=== PATIENT | male | born 1950 | race Hispanic/Latino ===

== ENCOUNTER 2022-12-08 09:54 | Outpatient (CLI) | payer SELFPAY ==
[2022-12-08 10:45] LABS: Bilirubin Neg (Negative); Blood, Urine Negative (Negative); Clarity Clear (Clear); Glucose, Urine (Dipstick) >=1000 mg/dL (Negative); Ketone, Urine 5 mg/dL (Negative); Leukocyte Negative (Negative); Nitrite Negative (Negative); Protein, Urine (Dipstick) 30 mg/dl (Neg-Trace); Specific Gravity, Urine 1.025 (1.005-1.030); Urobilinogen Normal mg/dL (Less than 2)
[2022-12-08 10:55] LABS: Bacteria/HPF Rare-Few HPF (None Seen); RBC/HPF 0-3 HPF (0-3); Squamous Epithelial 0-3 HPF (0-3); WBC/HPF 0-3 HPF (0-3)
[2022-12-08 10:57] LABS: Hemoglobin 14.7 g/dL (13.5-17.5); Mean Corpuscular HGB CONC 32.3 g/dL (32.0-36.0); Mean Corpuscular Hemoglobin 27.8 pg (27.0-33.0); Mean Corpuscular Volume 86.2 fl (81.2-95.1); Mean Platelet Volume 10.6 fl (7.4-10.4); Platelet Count 320 10x3/uL (150-450); Red Blood Cell (RBC) Count 5.28 10x6/uL (4.32-5.72); White Blood Cell (WBC) Count 10.1 10x3/uL (3.5-10.5)
[2022-12-08 11:05] LABS: Anion Gap 15 mmol/L (10-20); BUN (Urea Nitrogen) 16 mg/dL (8.4-25.7); Calc. Creatinine Clearance 0 mL/min (70-130); Calcium 9.6 mg/dL (7.8-10.44); Carbon Dioxide 24 mmol/L (23-31); Chloride 103 mmol/L (98-107); Estimated GFR 96; Glucose 218 mg/dL (83-110); Potassium 4.2 mmol/L (3.5-5.1); Sodium 138 mmol/L (136-145)
[2022-12-08 11:07] LABS: INR-International Normal Ratio 0.9; PTT 27.7 sec (22.0-33.0); Prothrombin Time 10.3 sec (9.5-12.1)
== END 2022-12-08 09:55 | disposition home or self-care (01) ==
LOC: LABBT 09:54
PROVIDERS: ATTEND Urology
DX: Z01.818 Encounter for other preprocedural examination (principal); R97.20 Elevated prostate specific antigen [PSA]; R35.0 Frequency of micturition; E11.9 Type 2 diabetes mellitus without complications; N40.1 Benign prostatic hyperplasia with lower urinary tract symptoms; R39.14 Feeling of incomplete bladder emptying; Z87.440 Personal history of urinary (tract) infections; R81 Glycosuria; Z72.0 Tobacco use; Z80.42 Family history of malignant neoplasm of prostate
CPT/HCPCS: 71046; 80048; 81001; 85027; 85610; 85730; 87086; 93005; 93010

== ENCOUNTER 2022-12-21 05:57 | Day surgery (SDC) | payer SELFPAY ==
[2022-12-19 16:49] VITALS: BMI 28.7
[2022-12-21] MEDS ORDERED: Ertapenem 1 GM in Sodium Chloride 0.9% 100 ML IVPB SCH (06:30)
[2022-12-21] MEDS ORDERED: PROPOFOL 60 ML ONE (07:21)
[2022-12-21] MEDS ORDERED: Midazolam HCl 2 mg/2 ml Vial ONE (07:21)
[2022-12-21] MEDS ORDERED: FENTANYL 50 MCG/ML 1 ML VIAL ONE (07:21)
[2022-12-21] MEDS ORDERED: Phenazopyridine HCl 100 MG TAB ONE ×2 (08:08→08:13)
[2022-12-21] MEDS ORDERED: Tamsulosin HCl 0.4 MG CAP ONE (08:09)
== END 2022-12-21 10:31 | disposition home or self-care (01) ==
LOC: SDC 05:57
PROVIDERS: ATTEND Urology
PROC: 0TJB8ZZ Inspection of Bladder, Via Natural or Artificial Opening Endoscopic (ICD-10-PCS; principal; 2022-12-21)
PROC: 0VB03ZX Excision of Prostate, Percutaneous Approach, Diagnostic (ICD-10-PCS; principal; 2022-12-21)
DX: N40.1 Benign prostatic hyperplasia with lower urinary tract symptoms (principal); R35.0 Frequency of micturition; R39.14 Feeling of incomplete bladder emptying; N35.811 Other urethral stricture, male, meatal; I10 Essential (primary) hypertension; E78.5 Hyperlipidemia, unspecified; E11.9 Type 2 diabetes mellitus without complications; F17.200 Nicotine dependence, unspecified, uncomplicated; E66.9 Obesity, unspecified; Z68.28 Body mass index [BMI] 28.0-28.9, adult; Z79.82 Long term (current) use of aspirin; Z79.84 Long term (current) use of oral hypoglycemic drugs; Z79.899 Other long term (current) drug therapy; Z87.440 Personal history of urinary (tract) infections
CPT/HCPCS: G0416; J1335; J2250; J2704; J3010; J3490

== ENCOUNTER 2023-03-13 10:35 | Outpatient (CLI) | payer OTHER | END 2023-03-13 10:36 | disposition home or self-care (01) | LOC: ULT 10:35 | PROVIDERS: ATTEND Urology | DX: N50.819 Testicular pain, unspecified (principal); N45.1 Epididymitis; N43.3 Hydrocele, unspecified | CPT/HCPCS: 76870; 93976 ==

== ENCOUNTER 2023-03-29 14:26 | Outpatient (CLI) | payer SELFPAY ==
[2023-03-29 15:58] LABS: Hemoglobin 13.4 g/dL (13.5-17.5); Mean Corpuscular HGB CONC 31.8 g/dL (32.0-36.0); Mean Corpuscular Hemoglobin 26.9 pg (27.0-33.0); Mean Corpuscular Volume 84.6 fl (81.2-95.1); Mean Platelet Volume 9.8 fl (7.4-10.4); Platelet Count 438 10x3/uL (150-450); RBC Distribution Width 16.1 % (11.5-14.5); Red Blood Cell (RBC) Count 4.99 10x6/uL (4.32-5.72); White Blood Cell (WBC) Count 11.1 10x3/uL (3.5-10.5)
[2023-03-29 16:11] LABS: PTT 30.9 sec (22.0-33.0); Prothrombin Time 10.9 sec (9.5-12.1)
[2023-03-29 16:15] LABS: Anion Gap 15 mmol/L (10-20); BUN (Urea Nitrogen) 29 mg/dL (8.4-25.7); Calc. Creatinine Clearance 0 mL/min (70-130); Calcium 9.7 mg/dL (7.8-10.44); Carbon Dioxide 24 mmol/L (23-31); Chloride 104 mmol/L (98-107); Estimated GFR 78; Glucose 93 mg/dL (83-110); Potassium 5.1 mmol/L (3.5-5.1); Sodium 138 mmol/L (136-145)
== END 2023-03-29 14:27 | disposition home or self-care (01) ==
LOC: LABBT 14:26
PROVIDERS: ATTEND Urology
DX: Z01.818 Encounter for other preprocedural examination (principal); N40.1 Benign prostatic hyperplasia with lower urinary tract symptoms; N41.2 Abscess of prostate
CPT/HCPCS: 80048; 85027; 85610; 85730; 93005; 93010

== ENCOUNTER 2023-04-05 06:09 | Day surgery (SDC) | payer SELFPAY ==
[2023-03-29 15:04] VITALS: BMI 23.6
[2023-04-05] MEDS ORDERED: Meropenem 1 GM in Sodium Chloride 0.9% 100 ML IVPB SCH (07:00)
[2023-04-05] MEDS ORDERED: Fluconazole In NaCl,Iso-Osm 200 MG in Premix Bag 1 BAG IVPB SCH (07:15)
[2023-04-05] MEDS ORDERED: fentaNYL 50 mcg/mL 1 mL Vial ONE ×2 (08:09→09:14)
[2023-04-05] MEDS ORDERED: Lidocaine 1% PF 5 ML VIAL ONE (08:19)
[2023-04-05] MEDS ORDERED: PROPOFOL 200 MG/20 ML VIAL ONE (08:19)
[2023-04-05] MEDS ORDERED: Ondansetron HCl/PF 4 MG/2 ML Vial IVP PRN (08:43)
[2023-04-05] MEDS ORDERED: HYDROmorphone 2 MG/ML VIAL SLOW IVP PRN (08:43)
[2023-04-05] MEDS ORDERED: Promethazine HCl 25 MG/ML VIAL IM PRN (08:43)
[2023-04-05] MEDS ORDERED: Oxybutynin 5 MG TAB ONE (09:26)
[2023-04-05] MEDS ORDERED: Phenazopyridine HCl 100 MG TAB ONE (09:26)
== END 2023-04-05 11:27 | disposition home or self-care (01) ==
LOC: SDC 06:09
PROVIDERS: ATTEND Urology
PROC: 0T988ZZ Drainage of Bilateral Ureters, Via Natural or Artificial Opening Endoscopic (ICD-10-PCS; principal; 2023-04-05)
DX: N40.1 Benign prostatic hyperplasia with lower urinary tract symptoms (principal); N41.2 Abscess of prostate; N35.916 Unspecified urethral stricture, male, overlapping sites; R97.20 Elevated prostate specific antigen [PSA]; R39.14 Feeling of incomplete bladder emptying; N45.3 Epididymo-orchitis; R35.0 Frequency of micturition; R59.1 Generalized enlarged lymph nodes; I10 Essential (primary) hypertension; F41.9 Anxiety disorder, unspecified; E78.5 Hyperlipidemia, unspecified; E66.3 Overweight; E11.9 Type 2 diabetes mellitus without complications; R81 Glycosuria; Z80.42 Family history of malignant neoplasm of prostate; B37.49 Other urogenital candidiasis; Z87.440 Personal history of urinary (tract) infections; Z79.84 Long term (current) use of oral hypoglycemic drugs; Z79.82 Long term (current) use of aspirin; Z79.899 Other long term (current) drug therapy
CPT/HCPCS: 36416; C1769; J1450; J2185; J2704; J3010; J3490

== ENCOUNTER 2023-05-24 07:50 | Outpatient (CLI) | payer OTHER | END 2023-05-24 07:51 | disposition home or self-care (01) | LOC: CT 07:50 | PROVIDERS: ATTEND Urology | DX: N40.1 Benign prostatic hyperplasia with lower urinary tract symptoms (principal); N41.2 Abscess of prostate; D18.09 Hemangioma of other sites; R91.8 Other nonspecific abnormal finding of lung field; Z87.440 Personal history of urinary (tract) infections | CPT/HCPCS: 74178 ==

== ENCOUNTER 2023-05-24 10:12 | Outpatient (CLI) | payer OTHER ==
[2023-05-24 11:40] LABS: Hemoglobin 14.5 g/dL (13.5-17.5); Mean Corpuscular HGB CONC 32.2 g/dL (32.0-36.0); Mean Corpuscular Hemoglobin 27.5 pg (27.0-33.0); Mean Corpuscular Volume 85.2 fl (81.2-95.1); Mean Platelet Volume 10.5 fl (7.4-10.4); Platelet Count 372 10x3/uL (150-450); RBC Distribution Width 14.8 % (11.5-14.5); Red Blood Cell (RBC) Count 5.28 10x6/uL (4.32-5.72); White Blood Cell (WBC) Count 13.4 10x3/uL (3.5-10.5)
[2023-05-24 12:15] LABS: PTT 29.1 sec (22.0-33.0); Prothrombin Time 10.9 sec (9.5-12.1)
[2023-05-24 13:04] LABS: Anion Gap 17 mmol/L (10-20); BUN (Urea Nitrogen) 15 mg/dL (8.4-25.7); Calc. Creatinine Clearance 0 mL/min (70-130); Calcium 9.2 mg/dL (7.8-10.44); Carbon Dioxide 20 mmol/L (23-31); Chloride 105 mmol/L (98-107); Estimated GFR 96; Glucose 227 mg/dL (83-110); Potassium 4.4 mmol/L (3.5-5.1); Sodium 138 mmol/L (136-145)
== END 2023-05-24 10:13 | disposition home or self-care (01) ==
LOC: LABBT 10:12
PROVIDERS: ATTEND Urology
DX: Z01.818 Encounter for other preprocedural examination (principal); N20.1 Calculus of ureter
CPT/HCPCS: 80048; 85027; 85610; 85730; 93005; 93010

== ENCOUNTER 2023-06-07 06:38 | Observation (INO) | payer SELFPAY ==
[2023-06-07] MEDS ORDERED: Meropenem 1 GM in Sodium Chloride 0.9% 100 ML IVPB SCH (09:15)
[2023-06-07] MEDS ORDERED: Vancomycin 1 GM in Premix Bag 1 BAG IVPB SCH (09:15)
[2023-06-07] MEDS ORDERED: Vancomycin 1 GM/200 ML (FROZEN) BAG ONE (11:09)
[2023-06-07] MEDS ORDERED: SUGAMMADEX SODIUM 200 MG/2 ML VIAL ONE (11:10)
[2023-06-07] MEDS ORDERED: fentaNYL PF 100 MCG/2 ML SYRINGE ONE (11:10)
[2023-06-07] MEDS ORDERED: Glycopyrrolate 0.2 MG/ML 5 ML SYRINGE ONE (11:32)
[2023-06-07] MEDS ORDERED: PROPOFOL 200 MG/20 ML VIAL ONE (11:32)
[2023-06-07] MEDS ORDERED: Labetalol HCl 100 MG/20 ML VIAL ONE (11:32)
[2023-06-07] MEDS ORDERED: NEOSTIGMINE 3 MG/3 ML SYR 3 MG/3 ML SYRINGE ONE (11:32)
[2023-06-07] MEDS ORDERED: Lidocaine 1% PF 5 ML VIAL ONE (11:32)
[2023-06-07] MEDS ORDERED: Rocuronium Bromide 10 MG/ML (10ML VIAL) ONE (11:32)
[2023-06-07] MEDS ORDERED: Ondansetron PF 4 MG/2 ML Vial ONE (11:32)
[2023-06-07] MEDS ORDERED: Bacitracin 1 PK ONE (13:04)
[2023-06-07] MEDS ORDERED: fentaNYL 50 mcg/mL 1 mL Vial ONE ×2 (14:14→14:35)
[2023-06-07] MEDS ORDERED: diphenhydrAMINE 50 MG/ML VIAL IVP PRN (14:22)
[2023-06-07] MEDS ORDERED: Dextrose 5% in Water 1,000 ML IV PRN (14:22)
[2023-06-07] MEDS ORDERED: Ondansetron PF 4 MG/2 ML Vial IVP PRN (14:22)
[2023-06-07] MEDS ORDERED: HYDROcodone/Acetaminophen 5/325 mg Tablet PO PRN ×2 (14:22)
[2023-06-07] MEDS ORDERED: Dextrose 50% Abboject 50 ML SYRINGE SLOW IVP PRN (14:22)
[2023-06-07] MEDS ORDERED: Mag-Al 1200 mg/1200 mg/30 ML UDCUP PO PRN (14:22)
[2023-06-07] MEDS ORDERED: Insulin Regular 300 UNITS/3 ML VIAL SC PRN (14:22)
[2023-06-07] MEDS ORDERED: Glucagon 1 MG/ML KIT IM PRN (14:22)
[2023-06-07] MEDS ORDERED: hydrALAZINE 20 MG/ML VIAL SLOW IVP PRN (14:22)
[2023-06-07] MEDS: Sodium Chloride 0.9% 1,000 ML IV SCH (14:33)
[2023-06-07] MEDS ORDERED: Phenazopyridine HCl 100 MG TAB PO PRN (14:39)
[2023-06-07 15:11] LABS: #Eosinphils 0.3 thou/uL (0.0-0.7); #Monocytes 0.8 thou/uL (0.11-0.59); #Neutrophils 10.4 thou/uL (1.40-6.50); %Basophils 0.2 % (0.0-1.0); %Eosinophils 2.4 % (0.0-10.0); %Lymphocytes 15.7 % (21.0-51.0); %Monocytes 5.6 % (0.0-10.0); %Neutrophils 75.7 % (42.0-75.0); Hematocrit 42.7 % (42.0-52.0); Hemoglobin 13.5 g/dL (14.0-18.0); Mean Corpuscular HGB CONC 31.6 g/dL (32.0-36.0); Mean Corpuscular Hemoglobin 27.4 pg (27.0-31.0); Mean Corpuscular Volume 86.8 fl (78.0-98.0); Mean Platelet Volume 9.8 fL (7.4-10.4); Platelet Count 303 10x3/uL (130-400); RBC Distribution Width 14.5 % (11.5-14.5); Red Blood Cell (RBC) Count 4.92 mill/uL (4.70-6.10); White Blood Cell (WBC) Count 13.7 10x3/uL (4.8-10.8)
[2023-06-07 15:32] LABS: Anion Gap 12 mmol/L (10-20); BUN (Urea Nitrogen) 15 mg/dL (8.4-25.7); Calc. Creatinine Clearance 98 mL/min (70-130); Calcium 8.9 mg/dL (7.8-10.44); Carbon Dioxide 23 mmol/L (23-31); Chloride 103 mmol/L (98-107); Estimated GFR 102; Glucose 153 mg/dL (83-110); Potassium 3.7 mmol/L (3.5-5.1); Sodium 134 mmol/L (136-145)
[2023-06-07 19:56] VITALS: BMI 22.8
[2023-06-07] MEDS ORDERED: Simvastatin 10 MG TAB PO SCH (21:00)
[2023-06-07] MEDS ORDERED: Insulin Glargine 30 UNITS/0.3 ML VIAL SC SCH (21:00)
[2023-06-07] MEDS ORDERED: Tamsulosin HCl 0.4 MG CAP PO SCH (21:00)
[2023-06-07] MEDS: Famotidine/PF 20 mg/2ml Vial SLOW IVP SCH (22:34)
[2023-06-07] MEDS: Meropenem 1 GM in Sodium Chloride 0.9% 100 ML IVPB SCH (22:35)
[2023-06-07] MEDS: metFORMIN 500 MG TAB PO SCH (22:36)
[2023-06-07] MEDS: Docusate 100 MG CAP PO SCH (22:36)
[2023-06-08] MEDS: Sodium Chloride 0.9% 1,000 ML IV SCH (05:05)
[2023-06-08 06:06] LABS: #Eosinphils 0.2 thou/uL (0.0-0.7); #Monocytes 0.7 thou/uL (0.11-0.59); #Neutrophils 8.3 thou/uL (1.40-6.50); %Basophils 0.2 % (0.0-1.0); %Eosinophils 1.9 % (0.0-10.0); %Lymphocytes 17.4 % (21.0-51.0); %Monocytes 6.5 % (0.0-10.0); %Neutrophils 73.6 % (42.0-75.0); Hemoglobin 13.1 g/dL (14.0-18.0); Mean Corpuscular HGB CONC 32.8 g/dL (32.0-36.0); Mean Corpuscular Hemoglobin 27.4 pg (27.0-31.0); Platelet Count 306 10x3/uL (130-400); RBC Distribution Width 14.4 % (11.5-14.5); Red Blood Cell (RBC) Count 4.78 mill/uL (4.70-6.10); White Blood Cell (WBC) Count 11.4 10x3/uL (4.8-10.8)
[2023-06-08 06:18] LABS: Mean Corpuscular Volume 83.7 fl (78.0-98.0)
[2023-06-08 06:22] LABS: Anion Gap 11 mmol/L (10-20); BUN (Urea Nitrogen) 13 mg/dL (8.4-25.7); Calc. Creatinine Clearance 89 mL/min (70-130); Calcium 8.6 mg/dL (7.8-10.44); Carbon Dioxide 23 mmol/L (23-31); Chloride 105 mmol/L (98-107); Estimated GFR 98; Glucose 156 mg/dL (83-110); Potassium 4.2 mmol/L (3.5-5.1); Sodium 135 mmol/L (136-145)
[2023-06-08] MEDS: Meropenem 1 GM in Sodium Chloride 0.9% 100 ML IVPB SCH (06:26)
[2023-06-08 08:36] VITALS: TEMP 97.6
[2023-06-08] MEDS ORDERED: Tamsulosin HCl 0.4 MG CAP PO SCH (09:00)
[2023-06-08] MEDS ORDERED: glyBURIDE 5 MG TAB PO SCH (09:00)
[2023-06-08] MEDS ORDERED: Pioglitazone HCl 15 MG TAB PO SCH (09:00)
[2023-06-08] MEDS ORDERED: Dutasteride 0.5 MG CAP PO SCH (09:00)
[2023-06-08] MEDS ORDERED: Lisinopril 20 MG TAB PO SCH (09:00)
[2023-06-08] MEDS: Docusate 100 MG CAP PO SCH (09:45)
[2023-06-08] MEDS: metFORMIN 500 MG TAB PO SCH (09:47)
[2023-06-08] MEDS: Famotidine/PF 20 mg/2ml Vial SLOW IVP SCH (09:48)
[2023-06-08 11:56] VITALS: BP 133/75
== END 2023-06-08 14:06 | disposition home or self-care (01) ==
LOC: SDC 06:38 → SURG A 14:22 → SURG B 19:46
PROVIDERS: ADMIT Urology; ATTEND Urology
PROC: 0VT08ZZ Resection of Prostate, Via Natural or Artificial Opening Endoscopic (ICD-10-PCS; principal; 2023-06-08)
DX: N40.1 Benign prostatic hyperplasia with lower urinary tract symptoms (principal); R33.9 Retention of urine, unspecified; M54.30 Sciatica, unspecified side; I10 Essential (primary) hypertension; E11.9 Type 2 diabetes mellitus without complications; E78.5 Hyperlipidemia, unspecified; M19.90 Unspecified osteoarthritis, unspecified site; E66.3 Overweight; Z98.890 Other specified postprocedural states; Z79.899 Other long term (current) drug therapy; F17.200 Nicotine dependence, unspecified, uncomplicated; Z79.84 Long term (current) use of oral hypoglycemic drugs
CPT/HCPCS: 36415; 36416; 80048; 85025; 86850; 86900; 86901; 88305; J1815; J2185; J2405; J2704; J3010; J3370-JW; J3490; S0028

== ENCOUNTER 2023-08-11 12:47 | Outpatient (CLI) | payer SELFPAY ==
[2023-08-11 13:34] LABS: Hematocrit 43.5 % (38.8-50.0); Hemoglobin 14.4 g/dL (13.5-17.5); Mean Corpuscular HGB CONC 33.1 g/dL (32.0-36.0); Mean Corpuscular Hemoglobin 27.2 pg (27.0-33.0); Mean Corpuscular Volume 82.1 fl (81.2-95.1); Mean Platelet Volume 10.3 fl (7.4-10.4); Platelet Count 321 10x3/uL (150-450); White Blood Cell (WBC) Count 13.4 10x3/uL (3.5-10.5)
[2023-08-11 13:41] LABS: Bilirubin Neg (Negative); Blood, Urine 25 (Negative); Glucose, Urine (Dipstick) 250 mg/dL (Negative); Ketone, Urine Negative (Negative); Leukocyte 500 (Negative); Nitrite Negative (Negative); Protein, Urine (Dipstick) 100 mg/dl (Neg-Trace); Specific Gravity, Urine 1.025 (1.005-1.030); Urobilinogen Normal mg/dL (Less than 2)
[2023-08-11 13:49] LABS: Clarity Slightly Cloudy (Clear)
[2023-08-11 13:55] LABS: WBC/HPF Greater than 50 HPF (0-3)
[2023-08-11 13:56] LABS: PTT 27.7 sec (22.0-33.0); Prothrombin Time 10.4 sec (9.5-12.1); Yeast-Hyphae 1+ HPF (None Seen)
[2023-08-11 13:58] LABS: Anion Gap 13 mmol/L (10-20); BUN (Urea Nitrogen) 28 mg/dL (8.4-25.7); Calc. Creatinine Clearance 0 mL/min (70-130); Calcium 9.3 mg/dL (7.8-10.44); Carbon Dioxide 22 mmol/L (23-31); Chloride 107 mmol/L (98-107); Estimated GFR 97; Glucose 207 mg/dL (83-110); Potassium 4.3 mmol/L (3.5-5.1); Sodium 138 mmol/L (136-145); Squamous Epithelial 0-3 HPF (0-3)
[2023-08-11 14:06] LABS: RBC/HPF 0-3 HPF (0-3)
[2023-08-11 14:07] LABS: Bacteria/HPF 1+ HPF (None Seen); Yeast-Budding 1+ HPF (None Seen)
== END 2023-08-11 12:48 | disposition home or self-care (01) ==
LOC: LABBT 12:47
PROVIDERS: ATTEND Urology
DX: Z01.818 Encounter for other preprocedural examination (principal); E11.9 Type 2 diabetes mellitus without complications; N40.1 Benign prostatic hyperplasia with lower urinary tract symptoms; R97.20 Elevated prostate specific antigen [PSA]; N41.2 Abscess of prostate; R81 Glycosuria; R35.0 Frequency of micturition; R39.14 Feeling of incomplete bladder emptying; N35.916 Unspecified urethral stricture, male, overlapping sites; B37.49 Other urogenital candidiasis; R59.1 Generalized enlarged lymph nodes; Z87.438 Personal history of other diseases of male genital organs; Z80.42 Family history of malignant neoplasm of prostate; Z87.440 Personal history of urinary (tract) infections; Z98.890 Other specified postprocedural states; Z90.79 Acquired absence of other genital organ(s); Z72.0 Tobacco use
CPT/HCPCS: 80048; 81001; 85027; 85610; 85730; 87086; 93005; 93010

== ENCOUNTER 2023-08-14 05:40 | Day surgery (SDC) | payer SELFPAY ==
[2023-08-11 13:27] VITALS: BMI 25.4
[2023-08-14] MEDS ORDERED: Sodium Chloride 0.9% 100 ML ONE (07:11)
[2023-08-14] MEDS ORDERED: Piperacillin/Tazobactam 3.375 GM VIAL ONE (07:11)
[2023-08-14] MEDS ORDERED: Vancomycin 1 GM/200 ML (FROZEN) BAG ONE (07:11)
[2023-08-14] MEDS ORDERED: Bupivacaine 0.25% HCL 30 ML VIAL ONE (09:32)
[2023-08-14] MEDS ORDERED: Lidocaine 1% PF 5 ML VIAL ONE ×2 (10:22→10:56)
[2023-08-14] MEDS ORDERED: PROPOFOL 20 ML ONE (10:22)
[2023-08-14] MEDS ORDERED: PROPOFOL 200 MG/20 ML VIAL ONE (10:56)
[2023-08-14] MEDS ORDERED: Ondansetron PF 4 MG/2 ML Vial ONE ×2 (10:56→11:09)
[2023-08-14] MEDS ORDERED: fentaNYL PF 100 MCG/2 ML SYRINGE ONE (11:05)
[2023-08-14] MEDS ORDERED: fentaNYL 50 mcg/mL 1 mL Vial ONE (11:25)
[2023-08-14] MEDS ORDERED: Vancomycin 1 GM VIAL ONE (11:37)
[2023-08-14] MEDS ORDERED: Bacitracin Zinc Ointment 30 gm TUBE ONE (11:53)
[2023-08-14] MEDS ORDERED: ePHEDrine Sulfate 50 MG/10 ML VIAL ONE (12:00)
[2023-08-14] MEDS ORDERED: Tamsulosin HCl 0.4 MG CAP ONE (14:01)
== END 2023-08-14 15:30 | disposition home or self-care (01) ==
LOC: SDC 05:40
PROVIDERS: ATTEND Urology
PROC: 0VB90ZZ Excision of Right Testis, Open Approach (ICD-10-PCS; principal; 2023-08-14)
DX: N45.3 Epididymo-orchitis (principal); N44.2 Benign cyst of testis; I10 Essential (primary) hypertension; E78.5 Hyperlipidemia, unspecified; E11.9 Type 2 diabetes mellitus without complications; N40.1 Benign prostatic hyperplasia with lower urinary tract symptoms; R35.0 Frequency of micturition; R39.14 Feeling of incomplete bladder emptying; R59.1 Generalized enlarged lymph nodes; N35.916 Unspecified urethral stricture, male, overlapping sites; F17.200 Nicotine dependence, unspecified, uncomplicated; Z79.899 Other long term (current) drug therapy; Z79.84 Long term (current) use of oral hypoglycemic drugs; Z80.42 Family history of malignant neoplasm of prostate
CPT/HCPCS: 36416; 88305; J2405; J2543; J2704; J3010; J3370; J3370-JW; J3490; S0020

== ENCOUNTER 2024-10-11 13:35 | Inpatient (IN) | payer MEDICARE, MEDICAID ==
[2024-10-11] MEDS ORDERED: Ondansetron PF 4 MG/2 ML Vial ONE ×2 (14:00→15:12)
[2024-10-11] MEDS ORDERED: Morphine 4 MG/ML VIAL ONE (14:00)
[2024-10-11 14:27] LABS: #Basophils Less than 0.03 10x3/uL (0.0-0.2); %Basophils 0.2 % (0.0-1.0); %Eosinophils 0.4 % (0.0-10.0); %Lymphocytes 10.5 % (21.0-51.0); %Monocytes 6.1 % (0.0-10.0); %Neutrophils 81.9 % (42.0-75.0); Hematocrit 40.7 % (42.0-52.0); Hemoglobin 13.6 g/dL (14.0-18.0); Mean Corpuscular HGB CONC 33.4 g/dL (32.0-36.0); Mean Corpuscular Hemoglobin 26.6 pg (27.0-31.0); Mean Corpuscular Volume 79.5 fL (78.0-98.0); Mean Platelet Volume 10.6 fL (7.4-10.4); Platelet Count 306 10x3/uL (130-400); RBC Distribution Width 15.7 % (11.5-14.5); Red Blood Cell (RBC) Count 5.12 mill/uL (4.70-6.10)
[2024-10-11 15:04] LABS: ALT (SGPT) 31 U/L (8-55); AST (SGOT) 16 U/L (5-34); Albumin 2.7 g/dL (3.4-4.8); Alkaline Phosphatase 74 U/L (40-110); Anion Gap 14 mmol/L (10-20); BUN (Urea Nitrogen) 36 mg/dL (8.4-25.7); Bilirubin, Total 0.2 mg/dL (0.2-1.2); Calc. Creatinine Clearance 0 mL/min (70-130); Calcium 8.4 mg/dL (7.8-10.44); Carbon Dioxide 22 mmol/L (23-31); Chloride 99 mmol/L (98-107); Critical Call Chemistry NUR.SW17; Estimated GFR 73; Globulin 3.7 g/dL (2.4-3.5); Glucose 560 mg/dL (83-110); Protein, Total 6.4 g/dL (5.8-8.1); Sodium 130 mmol/L (136-145)
[2024-10-11] MEDS ORDERED: Lidocaine 2% PF 100 mg/5 ml Syringe ONE (15:12)
[2024-10-11] MEDS ORDERED: SUCCINYLCHOLINE/SOD CL,ISO/PF 200 MG/10 ML SYRINGE FS ONE (15:12)
[2024-10-11] MEDS ORDERED: Rocuronium Bromide 10 MG/ML (10ML VIAL) ONE (15:12)
[2024-10-11] MEDS ORDERED: PROPOFOL 20 ML ONE (15:12)
[2024-10-11] MEDS ORDERED: Dexamethasone 4 mg/ml Vial ONE (15:12)
[2024-10-11] MEDS ORDERED: SUGAMMADEX SODIUM 200 MG/2 ML VIAL ONE (15:13)
[2024-10-11] MEDS ORDERED: Insulin Regular, Human 100 UNIT/ML 10 ML VIAL ONE ×2 (15:14→15:28)
[2024-10-11] MEDS ORDERED: Bupivacaine PF 0.5% 30 ML VIAL ONE (15:18)
[2024-10-11] MEDS ORDERED: EPINEPHrine 1 MG/ML VIAL ONE (15:18)
[2024-10-11] MEDS ORDERED: Morphine 2 MG/ML VIAL SLOW IVP PRN (15:19)
[2024-10-11] MEDS ORDERED: Dextrose 5% in Water 1,000 ML IV PRN ×2 (15:19→15:27)
[2024-10-11] MEDS ORDERED: Glucagon 1 MG/ML KIT IM PRN ×2 (15:19→15:27)
[2024-10-11] MEDS ORDERED: Insulin Lispro 100 UNIT/ML 10 ML VIAL SC PRN (15:19)
[2024-10-11] MEDS ORDERED: Dextrose 50% Abboject 50 ML SYRINGE SLOW IVP PRN ×2 (15:19→15:27)
[2024-10-11] MEDS ORDERED: Piperacillin/Tazobactam 3.375 GM VIAL ONE (15:37)
[2024-10-11] MEDS ORDERED: Sodium Chloride 0.9% 100 ML ONE (15:37)
[2024-10-11] MEDS ORDERED: fentaNYL PF 100 MCG/2 ML SYRINGE ONE (15:56)
[2024-10-11] MEDS ORDERED: fentaNYL 50 mcg/mL 1 mL Vial ONE (17:12)
[2024-10-11] MEDS: Acetaminophen 325 MG TAB PO SCH (18:24)
[2024-10-11] MEDS: traMADol HCl 50 MG TAB PO SCH (18:24)
[2024-10-11] MEDS: Piperacillin/Tazobactam 3.375 GM in Sodium Chloride 0.9% 100 ML IVPB SCH ×2 (18:24→20:39)
[2024-10-11] MEDS: Sodium Chloride 0.9% 1,000 ML IV SCH (18:24)
[2024-10-11 19:55] VITALS: BMI 28.9
[2024-10-11] MEDS: Enoxaparin 40 MG (0.4 mL) SYRINGE SC SCH (20:39)
[2024-10-11] MEDS: Insulin Glargine 30 UNITS/0.3 ML VIAL SC SCH (20:39)
[2024-10-11] MEDS: Senokot S 8.6-50 MG TAB PO SCH (20:39)
[2024-10-11] MEDS ORDERED: Insulin Glargine 30 UNITS/0.3 ML VIAL SC SCH (21:00)
[2024-10-11] MEDS: Vancomycin (BATCH) 1.5 GM in Premix 1 BAG IVPB SCH (21:53)
[2024-10-12] MEDS: Piperacillin/Tazobactam 3.375 GM VIAL ONE (03:32)
[2024-10-12 05:16] LABS: #Basophils Less than 0.03 10x3/uL (0.0-0.2); #Eosinophils Less than 0.03 10x3/uL (0.0-0.7); %Basophils 0.2 % (0.0-1.0); %Eosinophils 0.1 % (0.0-10.0); %Lymphocytes 17.5 % (21.0-51.0); %Neutrophils 75.6 % (42.0-75.0); Hematocrit 37.6 % (42.0-52.0); Hemoglobin 12.5 g/dL (14.0-18.0); Mean Corpuscular HGB CONC 33.2 g/dL (32.0-36.0); Mean Corpuscular Hemoglobin 26.5 pg (27.0-31.0); Mean Corpuscular Volume 79.8 fL (78.0-98.0); Mean Platelet Volume 10.4 fL (7.4-10.4); Platelet Count 317 10x3/uL (130-400); RBC Distribution Width 15.8 % (11.5-14.5); Red Blood Cell (RBC) Count 4.71 mill/uL (4.70-6.10)
[2024-10-12 05:24] LABS: Hemoglobin A1c 11.7 % (4.0-6.0); Vancomycin, Random 29.6 ug/mL (See Comment)
[2024-10-12 05:37] LABS: Anion Gap 12 mmol/L (10-20); BUN (Urea Nitrogen) 22 mg/dL (8.4-25.7); Calc. Creatinine Clearance 103 mL/min (70-130); Calcium 8.4 mg/dL (7.8-10.44); Carbon Dioxide 23 mmol/L (23-31); Chloride 103 mmol/L (98-107); Estimated GFR 97; Glucose 327 mg/dL (83-110); Potassium 4.1 mmol/L (3.5-5.1); Sodium 134 mmol/L (136-145)
[2024-10-12] MEDS: Insulin Lispro 100 UNIT/ML 10 ML VIAL SC PRN ×3 (05:58→18:01)
[2024-10-12] MEDS: metFORMIN 500 MG TAB PO SCH (08:45)
[2024-10-12] MEDS: Dutasteride 0.5 MG CAP PO SCH (08:45)
[2024-10-12] MEDS: Tamsulosin HCl 0.4 MG CAP PO SCH (08:46)
[2024-10-12] MEDS: Acetaminophen 500 MG TAB PO SCH (08:46)
[2024-10-12] MEDS: glyBURIDE 5 MG TAB PO SCH (08:47)
[2024-10-12] MEDS: Pioglitazone HCl 15 MG TAB PO SCH (08:47)
[2024-10-12] MEDS: Simvastatin 10 MG TAB PO SCH (08:47)
[2024-10-12] MEDS: Polyethylene Glycol 3350 17 GM Packet PO SCH (10:03)
[2024-10-12] MEDS: Lisinopril 20 MG TAB PO SCH (10:03)
[2024-10-12] MEDS ORDERED: Vancomycin 1 GM in Premix 1 BAG IVPB SCH (18:00)
[2024-10-12] MEDS: Amoxicillin/Potassium Clav 875 MG TAB PO SCH (21:09)
[2024-10-13 07:56] VITALS: BP 151/64; TEMP 97.6
[2024-10-13] MEDS: Pioglitazone HCl 15 MG TAB PO SCH (09:32)
[2024-10-13] MEDS: traMADol HCl 50 MG TAB PO PRN (09:34)
[2024-10-14] MEDS ORDERED: FLU (Fluad Triv) TS24-25 (65UP)/MF59C/PF 45 MCG/0.5 ML Syringe IM ONE (19:45)
== END 2024-10-13 11:35 | disposition home or self-care (01) | DRG 603 ==
LOC: ERS 13:35 → SDC/OP 15:07 → OBSVTOIN 18:22 → SURG B 18:22
PROVIDERS: ADMIT Specialist; ATTEND Specialist
PROC: 0J9C0ZZ Drainage of Pelvic Region Subcutaneous Tissue and Fascia, Open Approach (ICD-10-PCS; principal; 2024-10-11)
PROC: 3E033XZ Introduction of Vasopressor into Peripheral Vein, Percutaneous Approach (ICD-10-PCS; 2024-10-11)
DX: L02.214 Cutaneous abscess of groin (principal); E78.5 Hyperlipidemia, unspecified; I10 Essential (primary) hypertension; F41.8 Other specified anxiety disorders; E11.51 Type 2 diabetes mellitus with diabetic peripheral angiopathy without gangrene; B96.20 Unspecified Escherichia coli [E. coli] as the cause of diseases classified elsewhere; M19.90 Unspecified osteoarthritis, unspecified site; Z79.4 Long term (current) use of insulin; Z79.899 Other long term (current) drug therapy; Z98.890 Other specified postprocedural states; Z90.79 Acquired absence of other genital organ(s)
CPT/HCPCS: 36415; 36416; 74177; 80048; 80053; 80202; 83036; 85025; 87070; 87077; 87186; 87205; 96374; 96375; 97139; J0171; J0665; J1100; J1650; J1815; J2003; J2270; J2405; J2543; J2704; J3010; J3370; J7030